=== PATIENT | female | born 1975 | race Caucasian/White ===

== ENCOUNTER 2019-10-29 15:27 | Outpatient (CLI) | payer BC, SELFPAY ==
--- NOTE | ~2019-10-29 | MM_ITS ---
EXAMINATION: MM screening [facility] BI w kati HISTORY: Screening mammogram TECHNIQUE: Craniocaudal and mediolateral oblique 3-D tomosynthesis images were obtained and synthetic 2-D images were generated. CAD analysis was submitted and interpreted. COMPARISON: 09/18/2018, 09/15/2017, 09/09/2016 bilateral digital screening mammogram examinations BREAST PARENCHYMAL COMPOSITION: There are scattered areas of fibroglandular density. FINDINGS: There is no evidence of suspicious mass, calcification, or architectural distortion to sugg est malignancy in either breast. There has been no suspicious interval change. IMPRESSION: 1. No mammographic evidence of malignancy. 2. Recommend routine screening mammography in one year. BI-RADS Category 1: Negative Reviewed, dictated and finalized at location A.
== END 2019-10-29 15:28 | disposition home or self-care (01) ==
LOC: ANHIMG 15:30
PROVIDERS: PCP Family Medicine; Visit Provider Nurse Practitioner
DX: Z12.31 Encounter for screening mammogram for malignant neoplasm of breast (principal)
CPT/HCPCS: 77063; 77067

== ENCOUNTER → 2019-12-24 15:28 | Outpatient (CLI) | payer BC, SELFPAY ==
--- NOTE | ~2019-12-24 | US_ITS ---
EXAMINATION: US transvaginal EXAM DATE: 12/24/2019 15:50 INDICATION: Bleeding after intercourse. Endometriosis. TECHNIQUE: Pelvic transvaginal sonogram was performed. There are multiple grayscale and Doppler imag es available for interpretation. Comparison is made to prior examination from 09/28/2018. FINDINGS: Uterus measures 8.7 x 4.5 x 4.5 cm, and is morphologically normal. Endometrial stripe craig sures 5 mm, within normal limits. There is no free pelvic fluid. Right adnexa: The ovary is not identified. There is no adnexal mass. Left adnexa: The ovary is not identified. There is no adnexal mass. IMPRESSION: Unremarkable pelvic ultrasound exam. Reviewed, dictated and finalized at location A.
== END ==
PROVIDERS: Visit Provider Nurse Practitioner
DX: N95.0 Postmenopausal bleeding (principal)
CPT/HCPCS: 76830

== ENCOUNTER → 2020-01-01 12:45 | Outpatient (CLI) | payer BC, SELFPAY ==
--- NOTE | ~2020-01-01 | CT_ITS ---
EXAMINATION: CT abdomen pelvis wo/w con DATE: 01/01/2020 13:30 INDICATION: Microscopic hematuria TECHNIQUE: Computed tomography (CT) of the abdomen and pelvis was performed without intravenous contr ast. CT of the abdomen and pelvis was then performed with a total of 130 mL Omnipaque 350 intravenous contrast using a double-bolus technique for simultaneous opacification of the renal parenchyma and r enal collecting system. The dose-length product (DLP) was 1971.43 mGy-cm. Automated exposure control and iterative reconstruction technique were employed. COMPARISON: 11/16/2007 FINDINGS: The lung bases are clear. The heart size is normal. Small, stable nodules in the right midd le and lower lobes are consistent with old granulomatous disease. The liver, spleen, pancreas, gallbl adder, and adrenal glands are normal. There are punctate, nonobstructing stones of the right kidney. No stones are present in the left kidney, ureters, or the bladder. There is no hydronephrosis or hydr oureter. No suspicious renal or urothelial lesion is identified. An 8 mm low-attenuation lesion of th e left kidney upper pole is too small to characterize but likely represents a cyst. Although the left mid ureter is not opacified, no obstructing lesion is seen. No pathologically enlarged abdominal or pelvic lymph nodes are identified. There is no free intraperitoneal gas or evidence of bowel obstruct ion. IMPRESSION: 1. Punctate nonobstructing right nephrolithiasis. Reviewed, dictated and finalized at location A.
[2020-01-01 13:04] LABS: Estimated Glomerular Filt Rate > 60
== END ==
PROVIDERS: PCP Family Medicine; Visit Provider Urology
DX: R31.29 Other microscopic hematuria (principal); N20.0 Calculus of kidney
CPT/HCPCS: 74178; Q9967

== ENCOUNTER → 2020-01-21 15:59 | Outpatient (CLI) | payer BC, SELFPAY ==
--- NOTE | ~2020-01-21 | XR_ITS ---
XR abdomen/kub 1V DATE: 01/21/2020 16:17 INDICATION: Right sided kidney stone TECHNIQUE: AP projection, 2 views COMPARISON: 01/01/2020 CT abdomen and pelvis without and with IV contrast material FINDINGS: No urinary tract calcification is noted. No visceromegaly is detected. There is no evidence of bowel obstruction. There is mild dextroscoliosis of the thoracolumbar spine. IMPRESSION: Nonspecific abdomen Reviewed, dictated and finalized at Location A. Reviewed, dictated and finalized at location A. [employer]ICER IMPRESSION: Nonspecific abdomen
== END ==
PROVIDERS: PCP Family Medicine; Visit Provider Urology
DX: N20.0 Calculus of kidney (principal)
CPT/HCPCS: 74018

== ENCOUNTER → 2020-03-08 10:50 | Outpatient (CLI) | payer BC, SELFPAY ==
--- NOTE | ~2020-03-08 | MR_ITS ---
EXAMINATION: MR shoulder RT wo con DATE: 03/08/2020 11:36 INDICATION: Generalized right shoulder pain TECHNIQUE: Magnetic resonance imaging (MRI) of the right shoulder was performed without intravenous c ontrast. Sequences included axial PD-weighted FS FSE, coronal oblique PD-weighted FS FSE, coronal obl ique T2-weighted FS FSE, sagittal PD-weighted FS FSE, and sagittal T1-weighted SE. COMPARISON: None. FINDINGS: Coracoacromial arch: The acromion undersurface is curved in morphology (type II). The coracoacromial ligament is normal. M ild acromioclavicular osteoarthritis. Rotator cuff: Mild supraspinatus tendinopathy without discrete tear. The infraspinatus, teres minor and subscapular is tendons are normal. Normal rotator cuff muscle bulk and signal. Biceps tendon, glenoid labrum and glenohumeral cartilage: Long head of the biceps tendon is normal. Glenoid labrum is normal. Glenohumeral cartilage is normal. Fluid: Physiologic amount of fluid in the glenohumeral joint and biceps tendon sheath. No loose osteochondra l bodies. Small amount of fluid in the subacromial/subdeltoid bursa consistent with mild bursitis. Bones: Normal marrow signal with no edema, fracture or abnormal marrow replacing process. Mild cystic change at the posterior facet of the greater tuberosity. IMPRESSION: 1. Mild subacromial/subdeltoid bursitis with mild tendinopathy without tear of the underlying suprasp inatus tendon. Reviewed, dictated and finalized at location A. D REPRESENTATIVE IMPRESSION: 1. Mild subacromial/subdeltoid bursitis with mild tendinopathy without tear of the underlying supraspinatus tendon.
== END ==
PROVIDERS: PCP Family Medicine; Visit Provider Family Medicine
DX: M75.51 Bursitis of right shoulder (principal)
CPT/HCPCS: 73221

== ENCOUNTER → 2020-08-01 12:02 | Outpatient (CLI) | payer BC, SELFPAY ==
--- NOTE | ~2020-08-01 | US_ITS ---
EXAMINATION: US thyroid EXAM DATE: 08/01/2020 12:25 INDICATION: R22.1 - Localized swelling, mass and lump, neck. TECHNIQUE: Multiple grayscale and Doppler images of the thyroid were obtained (by a technologist who performed the scan) and subsequently reviewed. Individual nodules and recommendations may be reporte d in accordance with TI-RADS system as designated by the 2017 ACR White Paper TI-RADS committee. The re is no prior study for comparison. FINDINGS: The right thyroid lobe measures 4.5 x 1.1 x 1.4 cm, the left measuring 4.5 x 1.1 x 1.5 cm. There is h omogeneous thyroid echogenicity. No focal nodules identified. No regional cervical lymphadenopathy. IMPRESSION: Unremarkable thyroid ultrasound exam. Reviewed, dictated and finalized at location A.
== END ==
PROVIDERS: PCP Family Medicine; Visit Provider Nurse Practitioner Family
DX: R22.1 Localized swelling, mass and lump, neck (principal)
CPT/HCPCS: 76536

== ENCOUNTER 2021-01-05 15:53 | Outpatient (CLI) | payer BC, SELFPAY ==
--- NOTE | ~2021-01-05 | MM_ITS ---
EXAMINATION: MM screening [facility] BI w kati HISTORY: Screening mammogram TECHNIQUE: Craniocaudal and mediolateral oblique 3-D tomosynthesis images were obtained and synthetic 2-D images were generated. CAD analysis was submitted and interpreted. COMPARISON: 10/29/2019, 09/18/2018, 09/15/2017 bilateral digital screening mammogram examinations BREAST PARENCHYMAL COMPOSITION: There are scattered areas of fibroglandular density. FINDINGS: There is no evidence of suspicious mass, calcification, or architectural distortion to sugg est malignancy in either breast. There has been no suspicious interval change. IMPRESSION: 1. No mammographic evidence of malignancy. 2. Recommend routine screening mammography in one year. BI-RADS Category 1: Negative Reviewed, dictated and finalized at location A.
== END 2021-01-05 15:54 | disposition home or self-care (01) ==
LOC: ANHIMG 15:54
PROVIDERS: PCP Family Medicine; Visit Provider Nurse Practitioner
DX: Z12.31 Encounter for screening mammogram for malignant neoplasm of breast (principal)
CPT/HCPCS: 77063; 77067

== ENCOUNTER 2021-01-06 01:11 | Day surgery (SDC) | payer BC, SELFPAY ==
[2020-12-19 13:33] VITALS: BMI 28.2
[2021-01-06 08:51] VITALS: BP 109/66; PULSE 75; RESP 16; TEMP 36.9; O2SAT 99
[2021-01-06] MEDS: LACTATED RINGERS 1,000 ML 150 ML IV CONT (09:03)
--- NOTE | 2021-01-06 09:21 | WPDANESEPPF ---
Anes - Initial Pre Proc Eval Procedure: Operation Date: 01/06/21 10:00 Proposed Procedures p Esophagogastroduodenoscopy - Blayne Mcnair MD Date/Time: 01/06/21 09:21 Surgeon: Blayne Mcnair MD Pre Op Diagnosis: dysphagia Patient Data Age: 45 Gender: F Height: 1.82 m Weight: 93.8 kg Last Vital Signs Temp 36.9 C 01/06/21 08:51 Pulse 75 01/06/21 08:51 Resp 16 01/06/21 08:51 BP 109/66 01/06/21 08:51 Pulse Ox 99 01/06/21 08:51 Allergies Allergy/AdvReac Type Severity Reaction Status Date / Time No Known Allergies Allergy Verified 01/06/21 08:50 Home Medications Medication Instructions Recorded Confirmed Type buspirone 7.5 mg tablet 7.5 mg PO BID #180 tablet 10/29/20 01/06/21 Rx galcanezumab-gnlm 120 mg/mL 120 mg SUBCUT MONTHLY #1 ml 10/29/20 01/06/21 Rx subcutaneous pen injector levothyroxine 50 mcg tablet 50 mcg PO DAILY #90 tablet 10/29/20 01/06/21 Rx paroxetine HCl 20 mg tablet 20 mg PO DAILY #90 tablet 11/28/20 01/06/21 Rx qocwdkf-ezggxtymaj-MCY-caffeine 30 1 cap PO Q4-6H PRN #60 cap 12/08/20 01/06/21 Rx mg-50 mg-325 mg-40 mg capsule ergocalciferol (vitamin D2) 50,000 unit PO 2XW 12/19/20 01/06/21 History famotidine 20 mg PO DAILY PRN 12/19/20 01/06/21 History sumatriptan succinate 100 mg PO DAILY PRN 12/19/20 01/06/21 History valacyclovir [Valtrex] 500 mg PO Q12H PRN 12/19/20 01/06/21 History Patient hx anesthesia problems: none Family hx anesthesia problems: none Results Review: All pre-operative results and documents have been reviewed as part of the pre-operative evaluation. COUNTS INCLUDE 234 BEDS AT THE [facility] Past Medical History Medical History (Updated 01/06/21 @ 09:23 by Josef Li MD) Anxiety Anxiety and depression BMI 28.0-28.9,adult BMI 29.0-29.9,adult delivery delivered Dysphagia Encounter for screening colonoscopy Endometriosis History of esophageal stricture Hypothyroid Hypothyroidism Kidney stone Migraine Migraines Tobacco abuse Surgical History Surgical History History of appendectomy Hx of tonsillectomy Family History Family History Father Acute myocardial infarction Mother Diabetes mellitus Bipolar 1 disorder Sibling Bipolar 1 disorder Other Anal cancer Breast cancer Hypertension Social History Social History Smoking packs per day: 0.5 Smoking cigarettes per day: 10.0 Years smoked: 20 Smoking pack-years: 10.00 Smoking status: Current every day smoker Tobacco type: cigarettes Alcohol intake: current Substance use: current Substance use type: marijuana Last use: 12/08/20 Living arrangements: with family 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 Informed Consent: The patient's anesthetic plan and its attendant risks and benefits were discussed with the patient/family/POA. Questions were solicited and answers provided to the satisfaction of the patient/family/POA.
--- NOTE | 2021-01-06 09:22 | WPDGICN ---
Assessment and Plan Assessment and plan (1) Dysphagia: Qualifiers: Dysphagia type: oropharyngeal phase Qualified Code(s): R13.12 - Dysphagia, oropharyngeal phase Code(s): R13.10 - Dysphagia, unspecified Status: Acute Assessment and Plan: Patient presents because of difficulty swallowing. She has more difficulty with solid food suggesting esophageal narrowing. She also complains of heartburn indigestion with some improvement on [id number] famotidine. Plan is for EGD to assess more thoroughly. Possibly for esophageal dilatation. We will assess adequacy of her current medications with this test further recommendations will be given after EGD. GI Consult Note Consult date/time: 01/06/21 09:22 HPI: Lesley Bush is a 45 year old female Presents for EGD. Over the last year patient has increasing difficulty swallowing. She states solid foods will hang up in her throat. She has difficulty with some pills. She has had increasing difficulty with heartburn and has taken [id number] famotidine the this last year. Patient denies any weight loss. She denies any bleeding. She reports 10 years ago that she had an esophageal stricture requiring dilatation. Recent colonoscopy revealed only hyperplastic polyps. She is due for a colonoscopy in 5 years. She presents today for EGD because of difficulty swallowing. Review of Systems Review of Systems: All systems reviewed & are unremarkable except as noted in HPI and below PMFSH Past Medical History Medical History BMI 28.0-28.9,adult BMI 29.0-29.9,adult delivery delivered Encounter for screening colonoscopy Endometriosis Surgical History Surgical History History of appendectomy Hx of tonsillectomy Family History Family History Father Acute myocardial infarction Mother Diabetes mellitus Bipolar 1 disorder Sibling Bipolar 1 disorder Other Anal cancer Breast cancer Hypertension Social History Social History Smoking packs per day: 0.5 Smoking cigarettes per day: 10.0 Years smoked: 20 Smoking pack-years: 10.00 Smoking status: Current every day smoker Tobacco type: cigarettes Alcohol intake: current Substance use: current Substance use type: marijuana Last use: 12/08/20 Living arrangements: with family 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 Gender identity (if verbalized by the patient): Female Spiritual care concerns: No Meds Home Medications and Allergies Home Medications Medication Instructions Recorded Confirmed Type buspirone 7.5 mg tablet 7.5 mg PO BID #180 tablet 10/29/20 01/06/21 Rx galcanezumab-gnlm 120 mg/mL 120 mg SUBCUT MONTHLY #1 ml 10/29/20 01/06/21 Rx subcutaneous pen injector levothyroxine 50 mcg tablet 50 mcg PO DAILY #90 tablet 10/29/20 01/06/21 Rx paroxetine HCl 20 mg tablet 20 mg PO DAILY #90 tablet 11/28/20 01/06/21 Rx osxonku-giwckxcagm-LVQ-caffeine 30 1 cap PO Q4-6H PRN #60 cap 12/08/20 01/06/21 Rx mg-50 mg-325 mg-40 mg capsule ergocalciferol (vitamin D2) 50,000 unit PO 2XW 12/19/20 01/06/21 History famotidine 20 mg PO DAILY PRN 12/19/20 01/06/21 History sumatriptan succinate 100 mg PO DAILY PRN 12/19/20 01/06/21 History valacyclovir [Valtrex] 500 mg PO Q12H PRN 12/19/20 01/06/21 History Allergies Allergy/AdvReac Type Severity Reaction Status Date / Time No Known Allergies Allergy Verified 01/06/21 08:50 Vital Signs Vital Signs - 24 hr 01/06/21 08:51 Temperature 98.4 F Pulse Rate 75 Respiratory Rate 16 Blood Pressure 109/66 Pulse Oximetry 99 Exam Narrative: Physical exam reveals patient be alert. Vital signs stable. HEENT exam is unremarkable. Patie
[2021-01-06 10:12] VITALS: BP 99/62; PULSE 63; RESP 19; O2SAT 99
[2021-01-06 10:22] VITALS: BP 104/58; PULSE 63; RESP 19; O2SAT 100
[2021-01-06 10:32] VITALS: BP 113/76; PULSE 57; RESP 17; O2SAT 99
== END 2021-01-06 10:45 | disposition home or self-care (01) ==
PROVIDERS: PCP Family Medicine; Visit Provider Internal Medicine Gastroenterology
PROC: 0DJ08ZZ Inspection of Upper Intestinal Tract, Via Natural or Artificial Opening Endoscopic (ICD-10-PCS; CPT 43235; principal; 2021-01-06 10:00)
DX: K22.2 Esophageal obstruction (principal); F17.210 Nicotine dependence, cigarettes, uncomplicated; F12.90 Cannabis use, unspecified, uncomplicated
CPT/HCPCS: 43450; 43235; J2704; J7120

== ENCOUNTER 2022-02-11 15:30 | Outpatient (CLI) | payer BC, SELFPAY ==
--- NOTE | ~2022-02-11 | MM_ITS ---
EXAMINATION: MM screening [facility] BI w kati HISTORY: Screening mammogram TECHNIQUE: Craniocaudal and mediolateral oblique 3-D tomosynthesis images were obtained and synthetic 2-D images were generated. CAD analysis was submitted and interpreted. COMPARISON: 01/05/2021, 10/29/2019, 09/18/2018 BREAST PARENCHYMAL COMPOSITION: There are scattered areas of fibroglandular density. FINDINGS: No suspicious mass, calcification, or architectural distortion are identified in either jason ast to suggest malignancy. There has been no suspicious interval change. IMPRESSION: 1. No mammographic evidence of malignancy. 2. Recommend routine screening mammography in one year. BI-RADS Category 1: Negative Reviewed, dictated and finalized at location A. FILTER TANK TENDER HEAD
== END 2022-02-11 15:31 | disposition home or self-care (01) ==
LOC: ANHIMG 15:31
PROVIDERS: PCP Family Medicine; Visit Provider Obstetrics & Gynecology Gynecology
DX: Z12.31 Encounter for screening mammogram for malignant neoplasm of breast (principal)
CPT/HCPCS: 77063; 77067

== ENCOUNTER 2023-07-28 07:23 | Outpatient (CLI) | payer OTHER, SELFPAY ==
--- NOTE | ~2023-07-28 | MM_ITS ---
EXAMINATION: MM screening [facility] BI w kati HISTORY: Screening mammogram TECHNIQUE: Craniocaudal and mediolateral oblique 3-D tomosynthesis images were obtained and synthetic 2-D images were generated. CAD analysis was submitted and interpreted. COMPARISON: 02/11/2022, 01/05/2021 bilateral screening mammogram examinations BREAST PARENCHYMAL COMPOSITION: There are scattered areas of fibroglandular density. FINDINGS: There is no evidence of suspicious mass, calcification, or architectural distortion to sugg est malignancy in either breast. There has been no suspicious interval change. IMPRESSION: 1. No mammographic evidence of malignancy. 2. Recommend routine screening mammography in one year. BI-RADS Category 1: Negative Reviewed, dictated and finalized at location B.
== END 2023-07-28 07:24 | disposition home or self-care (01) ==
LOC: ANHIMG 07:25
PROVIDERS: PCP Family Medicine; Visit Provider Family Medicine
DX: Z12.31 Encounter for screening mammogram for malignant neoplasm of breast (principal)
CPT/HCPCS: 77063; 77067